=== PATIENT | female | born 1955 ===

== ENCOUNTER 2021-11-14 04:22 | Inpatient (IN) | payer OTHER ==
[2021-11-10 14:50] VITALS: BMI 26.6
[2021-11-14] MEDS ORDERED: MIDAZOLAM HCL 2 MG/2 ML SINGLE DOSE VIAL ONE (07:32)
[2021-11-14] MEDS ORDERED: PROPOFOL 20 ML ONE ×2 (07:32→09:35)
[2021-11-14] MEDS ORDERED: SODIUM CHLORIDE 0.9% P/F 10 ML VIAL IJ ONE (07:34)
[2021-11-14] MEDS ORDERED: ceFAZolin 2 GRAM PREMIX BAG IVPB ONE (08:25)
[2021-11-14] MEDS ORDERED: DEXAMETHASONE SOD PHOSPHATE 4 MG/1 ML VIAL ONE (08:25)
[2021-11-14] MEDS ORDERED: ceFAZolin SODIUM 1 GM VIAL ONE (08:28)
[2021-11-14] MEDS ORDERED: ACETAMINOPHEN 500 MG TABLET (FP) PO PRN (09:54)
[2021-11-14] MEDS ORDERED: ALPRAZolam 0.25 MG TABLET PO ONE (09:54)
[2021-11-14] MEDS ORDERED: ONDANSETRON 4 MG/2 ML VIAL IVPB PRN (09:54)
[2021-11-14] MEDS ORDERED: ONDANSETRON 4 MG/2 ML VIAL IVPUSH PRN (09:55)
[2021-11-14] MEDS ORDERED: HYDROmorphone HCl 2 MG/ML VIAL IVPB PRN (09:56)
[2021-11-14] MEDS ORDERED: LACTATED RINGERS SOLUTION 1,000 ML/1,000 ML INFUS.BAG IV SCH (10:00)
[2021-11-14] MEDS ORDERED: LACTATED RINGERS SOLUTION 1,000 ML IV SCH (10:00)
[2021-11-14] MEDS ORDERED: oxyCODONE HCL 5 MG TABLET PO ONE (11:00)
[2021-11-14] MEDS ORDERED: ACETAMINOPHEN INJECTION 100 ML IVPB ONE (11:27)
[2021-11-14] MEDS ORDERED: ACETAMINOPHEN 1000 MG/100 ML BAG IVPB ONE (12:06)
[2021-11-14] MEDS ORDERED: PNEUMOC 20-VAL CONJ-DIP CRM/PF 0.5 ML SYRINGE IM ONE (18:00)
[2021-11-14] MEDS ORDERED: ACETAMINOPHEN 325 MG TABLET (FP) PO PRN ×2 (18:15)
[2021-11-14] MEDS ORDERED: oxyCODONE HCL 5 MG TABLET PO PRN ×2 (18:15)
[2021-11-14] MEDS: CEFAZOLIN 1 GM in DEXTROSE 5%-WATER - 50 ML IVPB SCH ×2 (18:17→21:41)
[2021-11-15] MEDS: CEFAZOLIN 1 GM in DEXTROSE 5%-WATER - 50 ML IVPB SCH ×3 (03:51→09:30)
[2021-11-15 10:14] VITALS: BP 113/72; PULSE 80; RESP 18; TEMP 98.5
== END 2021-11-15 12:33 | disposition home or self-care (01) | DRG 362 ==
LOC: J2C 04:22 → EDSTATUS 08:00 → J7W 16:45 → EDSTATUS 18:18
PROVIDERS: ADMIT Surgery; ATTEND Surgery
PROC: 07T60ZZ Resection of Left Axillary Lymphatic, Open Approach (ICD-10-PCS; 2021-11-14)
PROC: 0HTU0ZZ Resection of Left Breast, Open Approach (ICD-10-PCS; principal; 2021-11-14 08:00)
DX: C50.912 Malignant neoplasm of unspecified site of left female breast (principal); E78.5 Hyperlipidemia, unspecified; R73.03 Prediabetes; H91.8X2 Other specified hearing loss, left ear
CPT/HCPCS: 88309-TC; 90677; 94010; 94760

== ENCOUNTER 2021-12-05 04:04 | Day surgery (SDC) | payer OTHER ==
[2021-12-04 14:09] VITALS: BMI 26.9
[2021-12-05] MEDS ORDERED: ceFAZolin SODIUM 1 GM VIAL ONE ×2 (12:38→13:44)
[2021-12-05] MEDS ORDERED: MIDAZOLAM HCL 2 MG/2 ML SINGLE DOSE VIAL ONE ×2 (12:39→13:31)
[2021-12-05] MEDS ORDERED: PROPOFOL 20 ML ONE (12:39)
[2021-12-05] MEDS ORDERED: LIDOCAINE HCL 1%, 10 MG/ML (20ML VIAL) ONE (12:45)
[2021-12-05] MEDS ORDERED: ONDANSETRON 4 MG/2 ML VIAL ONE (13:53)
[2021-12-05] MEDS ORDERED: DEXAMETHASONE SOD PHOSPHATE 4 MG/1 ML VIAL ONE (13:53)
[2021-12-05] MEDS ORDERED: LIDOCAINE HCL 1%, 10 MG/ML (20ML VIAL) NR ONE (14:10)
[2021-12-05] MEDS ORDERED: ONDANSETRON 4 MG/2 ML VIAL IVPUSH PRN (15:00)
[2021-12-05] MEDS ORDERED: LACTATED RINGERS SOLUTION 1,000 ML IV SCH (15:00)
[2021-12-05] MEDS ORDERED: oxyCODONE HCL 5 MG TABLET PO PRN (15:00)
[2021-12-05 16:01] VITALS: RESP 20; TEMP 97.3
[2021-12-05 18:44] VITALS: BP 147/80; PULSE 76
== END 2021-12-05 17:00 | disposition home or self-care (01) ==
LOC: JASU-SURG 04:04
PROVIDERS: ATTEND Surgery
PROC: B518ZZA Fluoroscopy of Superior Vena Cava, Guidance (ICD-10-PCS; 2021-12-05)
PROC: 02HV33Z Insertion of Infusion Device into Superior Vena Cava, Percutaneous Approach (ICD-10-PCS; principal; 2021-12-05 11:00)
DX: C50.919 Malignant neoplasm of unspecified site of unspecified female breast (principal)
CPT/HCPCS: 36561; C1788; 71045-TC-FY; 76000-TC-FY; 94760; J1644